=== PATIENT | male | born 1985 | race Caucasian/White ===

== ENCOUNTER 2019-04-09 14:26 | Emergency (ER) | payer MEDICAID, OTHER ==
[~2019-04-09] VITALS: Ht 170.2 cm; Wt 60.0 kg
[~2019-04-09 14:26] MED LIST: CYCL-394 PO
[2019-04-09] MEDS ORDERED: ketorolac trometh inj. 60 MG/2 ML VIAL IM ONE (14:55)
[2019-04-09] MEDS ORDERED: HYDROcodone/acetaminophen 5mg/325mg tablet PO ONE (14:55)
[2019-04-09] MEDS ORDERED: amoxicillin 250mg capsule PO ONE (14:55)
[2019-04-09] MEDS ORDERED: AMOX500C2 PO (14:59)
[2019-04-09 15:26] VITALS: BP 131/87
[2019-04-10] MEDS ORDERED: CLIN-90 PO (20:45)
[2019-04-10] MEDS ORDERED: TRAM50TA2 PO (21:14)
== END 2019-04-09 15:22 | disposition home or self-care (01) ==
LOC: ER 14:26
DX: K02.9 Dental caries, unspecified (principal); F17.200 Nicotine dependence, unspecified, uncomplicated; Z88.6 Allergy status to analgesic agent; Z79.899 Other long term (current) drug therapy; Z79.82 Long term (current) use of aspirin; Z90.89 Acquired absence of other organs; Z85.47 Personal history of malignant neoplasm of testis
CPT/HCPCS: 96372; 99283; J1885

== ENCOUNTER 2019-04-10 19:10 | Emergency (ER) | payer MEDICAID, OTHER ==
[~2019-04-10] VITALS: Ht 170.2 cm; Wt 61.0 kg
[~2019-04-10 19:10] MED LIST changes: +AMOX500C2 PO
[2019-04-10 19:18] VITALS: BP 139/79
--- NOTE | 2019-04-10 19:58 | NUR ---
ABSCESS LEFT UPPER JAW
[2019-04-10] MEDS ORDERED: ondansetron 4mg rapidly disintigrating tab PO ONE (20:45)
[2019-04-10] MEDS ORDERED: LIDOcaine 1% W/epiNEPHrine 1:200,000 10ml vial IJ ONE (20:45)
[2019-04-10] MEDS ORDERED: CLIN-90 PO (20:45)
[2019-04-10] MEDS ORDERED: clindamycin 150mg capsule PO ONE (21:05)
[2019-04-10] MEDS ORDERED: TRAM50TA2 PO (21:14)
[2019-04-10] MEDS ORDERED: HYDROcodone/acetaminophen 5mg/325mg tablet PO ONE (21:20)
== END 2019-04-10 21:29 | disposition home or self-care (01) ==
LOC: ER 19:12
DX: K04.7 Periapical abscess without sinus (principal); Z88.6 Allergy status to analgesic agent; Z79.2 Long term (current) use of antibiotics; Z79.899 Other long term (current) drug therapy; Z90.89 Acquired absence of other organs
CPT/HCPCS: 41800; 99284